=== PATIENT | female | born 2000 | race African-American/Black ===

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

== ENCOUNTER 2022-02-25 09:11 | Emergency (ER) | payer SELFPAY ==
[~2022-02-25] VITALS: Ht 157 cm; Wt 127.0 kg
[~2022-02-25 09:11] MED LIST changes: +ALBU8.5H6 INH; +AZIT250T12 PO; +BENZ200C51 PO
--- NOTE | 2022-02-25 10:22 | ED GI ---
General Chief Complaint: Abdominal/GI Problems Stated Complaint: ABD PAIN | HEADACHES | NAUSEA Nursing Triage Note: PT PRESENTS TO ED VIA POV FROM HOME WITH INTERMITTENT UPPER ABDOMINAL PAIN X 2DAYS. PT REPORTS LIGHTHEADEDNESS, NAUSEA, VOMITING STARTING THIS AM. PT STATES ITS WORSE WITH EATING. PT DENIES URINARY S/S. Source of Information: Patient Exam Limitations: No Limitations History of Present Illness Date Seen by Provider: Feb 25, 2022 Time Seen by Provider: 09:45 Initial Comments 21-year-old female presents reporting some bilateral lower abdominal cramping. Symptoms have been constant since that time. No aggravating or alleviating factors no radiation. She did have nausea and a single episode of vomiting this morning. No urinary symptoms. No vaginal discharge odor or bleeding. Last menstrual cycle was at the end of January and normal for her. She denies any new sexual partners or concerns for STDs, but states her mom is concerned about these things Allergies and Home Medications Allergies Coded Allergies: No Known Drug Allergies (Unverified , 02/13/20) Patient Home Medication List Home Medication List Reviewed: Yes Albuterol Sulfate (Ventolin Hfa) 90 Mcg Hfa.aer.ad, 2 PUFF INH QID PRN for COUGH Prescribed by: Susan Kulkarni on 12/17/21 1136 Alprazolam (Xanax) 0.25 Mg Tablet, 0.25 MG PO Q8H PRN for ANXIETY Prescribed by: BLAIR STEPHENSON on 12/29/20 0610 Amoxicillin (Amoxicillin) 500 Mg Capsule, 500 MG PO TID Prescribed by: MARGARETTE KELLER on 07/05/202040 Azithromycin (Azithromycin) 250 Mg Tablet, 250 MG PO UD Prescribed by: Susan Kulkarni on 12/17/21 1136 Benzonatate (Benzonatate) 200 Mg Capsule, 200 MG PO TID PRN for COUGH Prescribed by: Susan Kulkarni on 12/17/21 1136 Hydroxyzine HCl (Hydroxyzine HCl) 50 Mg Tablet, 50 MG PO Q6H PRN for ANXIETY Prescribed by: TAYA BURRELL on 02/13/20 1449 Hydroxyzine HCl (Hydroxyzine HCl) 25 Mg Tablet, 25 MG PO Q6H PRN for ANXIETY Prescribed by: BLAIR STEPHENSON on 10/29/20 1545 Lorazepam (Ativan) 0.5 Mg Tablet, 0.5 MG PO TID PRN for ANXIETY Prescribed by: ALLYSON ALCALA on 05/08/20 0132 Naproxen (Naprosyn) 500 Mg Tablet, 500 MG PO BID PRN for PAIN-MODERATE (5-7) Prescribed by: MARGARETTE KELLER on 07/05/202040 Prednisone (Prednisone) 20 Mg Tab, 40 MG PO DAILY Prescribed by: MARIAM TREVINO on 10/07/212024 Prednisone (Prednisone) 20 Mg Tab, 60 MG PO DAILY Prescribed by: Susan Kulkarni on 12/17/21 113 Trazodone HCl (Trazodone HCl) 50 Mg Tablet, 100 MG PO HS Prescribed by: BLAIR STEPHENSON on 10/29/20 1545 Review of Systems Review of Systems Constitutional: no symptoms reported EENTM: No Symptoms Reported Respiratory: No Symptoms Reported Cardiovascular: No Symptoms Reported Gastrointestinal: Abdominal Pain, Nausea, Vomiting Genitourinary: No Symptoms Reported Musculoskeletal: no symptoms reported Skin: no symptoms reported Psychiatric/Neurological: No Symptoms Reported Endocrine: No Symptoms Reported Hematologic/Lymphatic: No Symptoms Reported Past Xbwwgld-Dtiayw-Gturfx Hx Patient Social History Tobacco Use?: No Substance use?: No Alcohol Use?: Yes Alcohol Frequency: Once in a while Pt feels they are or have been: No Immunizations Up To Date Tetanus Booster (TDap): Less than 5yrs PED Vaccines UTD: Yes First/Initial COVID19 Vaccinat: N/A Second COVID19 Vaccination Jimy: N/A Third COVID19 Vaccination Date: N/A Past Medical History Surgery/Hospitalization HX: TONSILS Surgeries: Yes Tonsillectomy Respiratory: No Cardiac: No Neurological: No Reproductive Disorders: Yes (IRREGULAR PERIODS) Female Reproductive Disorders: Menstrual Problems Genitourinary: No Gastrointestinal: No Musculoskeletal: No Endocrine: Yes (OBESITY) HEENT: No Cancer: No Psychosocial: Yes Sleep Difficulties, Anxiety Integumentary: No Blood Disorders: No Family Medical History Reviewed Nursing Family Hx No Pertinent Family Hx Physical Exam Vital Signs Vital Signs - First Documented 02/25/22 09:35 Temp 36.5 Pulse 84 Resp 16 B/P (MAP) 143/91 (108) Pulse Ox 100 Capillary Refill : Less Than 3 Seconds Height/Weight/BMI Height: '" Weight: lbs. oz. kg; 51.00 BMI Method: General Appearance: WD/WN, no apparent distress HEENT: normal ENT inspection, pharynx normal Neck: non-tender, supple Respiratory: chest non-tender, lungs clear, normal breath sounds, no respiratory distress, no accessory muscle use Cardiovascular: regular rate, rhythm, no murmur Gastrointestinal: normal bowel sounds, soft, no organomegaly, other (Mild tenderness palpation bilateral lower abdomen without rebound or guarding. No mass organomegaly. No skin changes) Extremities: normal range of motion, normal inspection, no calf tenderness, normal capillary refill Back: normal inspection, no CVA tenderness, no vertebral tenderness Neurologic/Psychiatric: alert, normal mood/affect, oriented x 3 Skin: normal color, warm/dry Progress/Results/Core Measures Results/Orders Lab Results Laboratory Tests Test 02/25/22 10:20 02/25/22 11:04 Range/Units Urine Color YELLOW Urine Clarity CLEAR Urine pH 7.0 5-9 Urine Specific [place] 1.020 1.016-1.022 Urine Protein NEGATIVE NEGATIVE Urine Glucose (UA) NEGATIVE NEGATIVE Urine Ketones NEGATIVE NEGATIVE Urine Nitrite NEGATIVE NEGATIVE Urine Bilirubin NEGATIVE NEGATIVE Urine Urobilinogen 0.2 < = 1.0 MG/DL Urine Leukocyte Esterase NEGATIVE NEGATIVE Urine RBC (Auto) NEGATIVE NEGATIVE Urine RBC NONE /HPF Urine WBC RARE /HPF Urine Squamous Epithelial Cells 0-2 /HPF Urine Crystals NONE /LPF Urine Bacteria NEGATIVE /HPF Urine Casts NONE /LPF Urine Mucus NEGATIVE /LPF Urine Culture Indicated NO Urine Test NEGATIVE NEGATIVE White Blood Count 12.8 H 4.3-11.0 10^3/uL Red Blood Count 4.67 3.80-5.11 10^6/uL Hemoglobin 11.7 11.5-16.0 g/dL Hematocrit 37 35-52 % Mean Corpuscular Volume 80 80-99 fL Mean Corpuscular Hemoglobin 25 25-34 pg Mean Corpuscular Hemoglobin Concent 31 L 32-36 g/dL Red Cell Distribution Width 15.4 H 10.0-14.5 % Platelet Count 308 130-400 10^3/uL Mean Platelet Volume 10.5 9.0-12.2 fL Immature Granulocyte % (Auto) 0 % Neutrophils (%) (Auto) 69 42-75 % Lymphocytes (%) (Auto) 26 12-44 % Monocytes (%) (Auto) 4 0-12 % Eosinophils (%) (Auto) 1 0-10 % Basophils (%) (Auto) 0 0-10 % Neutrophils # (Auto) 8.8 H 1.8-7.8 10^3/uL Lymphocytes # (Auto) 3.4 1.0-4.0 10^3/uL Monocytes # (Auto) 0.5 0.0-1.0 10^3/uL Eosinophils # (Auto) 0.1 0.0-0.3 10^3/uL Basophils # (Auto) 0.0 0.0-0.1 10^3/uL Immature Granulocyte # (Auto) 0.0 0.0-0.1 10^3/uL Sodium Level 136 135-145 MMOL/L Potassium Level 3.6 3.6-5.0 MMOL/L Chloride Level 108 H 98-107 MMOL/L Carbon Dioxide Level 20 L 21-32 MMOL/L Anion Gap 8 5-14 MMOL/L Blood Urea Nitrogen 13 7-18 MG/DL Creatinine 0.73 0.60-1.30 MG/DL Estimat Glomerular Filtration Rate 121 BUN/Creatinine Ratio 18 Glucose Level 90 70-105 MG/DL Calcium Level 8.9 8.5-10.1 MG/DL Corrected Calcium 9.1 8.5-10.1 MG/DL Total Bilirubin 0.2 0.1-1.0 MG/DL Aspartate Amino Transf (AST/SGOT) 16 5-34 U/L Alanine Aminotransferase (ALT/SGPT) 17 0-55 U/L Alkaline Phosphatase 99 40-136 U/L Total Protein 7.3 6.4-8.2 GM/DL Albumin 3.8 3.2-4.5 GM/DL Lipase 13 8-78 U/L My Orders Orders - NNEKAGREGORY DO Lipase (02/25/22 10:05) Ua Culture If Indicated (02/25/22 10:05) Hcg,Qualitative Urine (02/25/22 10:05) Cbc With Automated Diff (02/25/22 10:05) Comprehensive Metabolic Panel (02/25/22 10:05) Vital Signs/I&O 02/25/22 09:35 Temp 36.5 Pulse 84 Resp 16 B/P (MAP) 143/91 (108) Pulse Ox 100 Blood Pressure Mean: 108 Departure Communication (Admissions) The patient is hemodynamically stable. She has a benign abdominal exam. CBC reveals a low hemoglobin. This may be due to blood loss, malnutrition, hemolysis, renal failure, malignancy or inherited disorder., CMP obtained to screen for any intra-abdominal pathology, renal function as well as electrolyte abnormalities. She is not anemic. Negative test. Urine shows no evidence for any infection. She has no symptoms of STI. She was discharged in stable condition with supportive care. Impression Primary Impression: Lower abdominal pain Disposition: HOME, SELF-CARE Condition: Stable Departure-Patient Inst. Referrals: [facility] [place] (PCP/Family) Primary Care Physician Patient Instructions: Abdominal Pain, Adult ED Add. Discharge Instructions: There is no evidence for any emergent medical condition at this time. Your labs and exam are reassuring. Your vital signs are normal. Your urine shows no evidence for any infection. Use ibuprofen and Tylenol as needed for pain. Return to the emergency department for any severe concerns. Follow-up with your primary doctor for any nonemergent needs All discharge instructions reviewed with patient and/or family. Voiced understanding. Scripts Dicyclomine HCl (Dicyclomine HCl) 10 Mg Capsule 10 MG PO TID for Abdominal Pain for 3 Days, #9 CAP Prov: GREGORY EARLY DO 02/25/22 GREGORY EARLY DO Feb 25, 2022 10:22
[2022-02-25 10:32] LABS: BILIRUBIN,URINE NEGATIVE (NEGATIVE); CLARITY,URINE CLEAR; COLOR,URINE YELLOW; GLUCOSE, URINE (UA) NEGATIVE (NEGATIVE); KETONES,URINE NEGATIVE (NEGATIVE); LEUKOCYTE ESTERASE ,URINE NEGATIVE (NEGATIVE); NITRITE,URINE NEGATIVE (NEGATIVE); PROTEIN,URINE NEGATIVE (NEGATIVE)
[2022-02-25 10:54] LABS: BACTERIA,URINE NEGATIVE /HPF; SQUAMOUS EPITHELIAL CELL,UR 0-2 /HPF; WBC,URINE RARE /HPF
[2022-02-25 11:09] LABS: BASOPHILS % (AUTO) 0 % (0-10); EOSINOPHILS # (AUTO) 0.1 10^3/uL (0.0-0.3); EOSINOPHILS % (AUTO) 1 % (0-10); HEMATOCRIT 37 % (35-52); HEMOGLOBIN 11.7 g/dL (11.5-16.0); LYMPHOCYTES # (AUTO) 3.4 10^3/uL (1.0-4.0); LYMPHOCYTES % (AUTO) 26 % (12-44); MEAN CORPUSCULAR HEMOGLOBIN 25 pg (25-34); MEAN CORPUSCULAR HGB CONC 31 g/dL (32-36); MEAN CORPUSCULAR VOLUME 80 fL (80-99); MEAN PLATELET VOLUME 10.5 fL (9.0-12.2); MONOCYTES # (AUTO) 0.5 10^3/uL (0.0-1.0); MONOCYTES % (AUTO) 4 % (0-12); NEUTROPHILS # (AUTO) 8.8 10^3/uL (1.8-7.8); NEUTROPHILS % (AUTO) 69 % (42-75); PLATELET COUNT 308 10^3/uL (130-400); WHITE BLOOD COUNT 12.8 10^3/uL (4.3-11.0)
[2022-02-25 11:34] LABS: ALBUMIN 3.8 GM/DL (3.2-4.5); POTASSIUM 3.6 MMOL/L (3.6-5.0)
[2022-02-25 11:35] LABS: CALCIUM 8.9 MG/DL (8.5-10.1)
[2022-02-25 11:36] LABS: TOTAL PROTEIN 7.3 GM/DL (6.4-8.2)
[2022-02-25 11:38] LABS: BILIRUBIN,TOTAL 0.2 MG/DL (0.1-1.0)
[2022-02-25 11:40] LABS: CREATININE SERUM 0.73 MG/DL (0.60-1.30)
[2022-02-25] MEDS ORDERED: DICY10CA12 PO (11:51)
[2022-02-25 12:16] VITALS: BP 116/77
== END 2022-02-25 12:16 | disposition home or self-care (01) ==
LOC: EDUNIT# 09:11 → ER 09:15
DX: R10.31 Right lower quadrant pain (principal); R10.32 Left lower quadrant pain; E66.9 Obesity, unspecified; Z32.02 Encounter for pregnancy test, result negative
CPT/HCPCS: 36415; 80053; 81000; 83690; 84703; 85025; 99283

== ENCOUNTER 2022-05-18 13:46 | Emergency (ER) | payer SELFPAY ==
[~2022-05-18] VITALS: Ht 157.5 cm; Wt 120.2 kg
[~2022-05-18 13:46] MED LIST changes: +DICY10CA12 PO
[2022-05-18] MEDS ORDERED: LORazepam 0.5 MG (ATIVAN) TABLET PO STA (14:05)
--- NOTE | 2022-05-18 14:09 | ED General ---
General Chief Complaint: Psych/Social Disorder Stated Complaint: PANIC ATTACKS Source of Information: Patient Exam Limitations: No Limitations History of Present Illness Date Seen by Provider: May 18, 2022 Time Seen by Provider: 14:06 Initial Comments Patient is a 21-year-old female who presents to the ED with for panic attack. She states she has felt anxious over the past 3 days. Patient states she has felt jittery, fast heart rate, shakiness, sweaty. No cause of her symptoms. She states she has a history of anxiety and depression. She was on BuSpar and Prozac about a year and a half ago but she stopped because she did not like the medication and how it made her feel. She does not currently see a therapist. She states she has been seen prior and was given dose of Xanax without much improvement. She denies of any history of thyroid disease, drug use, alcohol use, concern for , abdominal pain, vaginal bleeding, fever, visual changes. Patient is very soft-spoken and reserved. No suicidal homicidal thoughts Allergies and Home Medications Allergies Coded Allergies: No Known Drug Allergies (Unverified , 02/13/20) Patient Home Medication List Home Medication List Reviewed: Yes Albuterol Sulfate (Ventolin Hfa) 90 Mcg Hfa.aer.ad, 2 PUFF INH QID PRN for COUGH Prescribed by: Susan Kulkarni on 12/17/21 1136 Alprazolam (Xanax) 0.25 Mg Tablet, 0.25 MG PO Q8H PRN for ANXIETY Prescribed by: BLAIR STEPHENSON on 12/29/20 0610 Amoxicillin (Amoxicillin) 500 Mg Capsule, 500 MG PO TID Prescribed by: MARGARETTE KELLER on 07/05/20 204 Azithromycin (Azithromycin) 250 Mg Tablet, 250 MG PO UD Prescribed by: Susan Kulkarni on 12/17/21 1136 Benzonatate (Benzonatate) 200 Mg Capsule, 200 MG PO TID PRN for COUGH Prescribed by: Susan Kulkarni on 12/17/21 1136 Dicyclomine HCl (Dicyclomine HCl) 10 Mg Capsule, 10 MG PO TID Prescribed by: GREGORY EARLY MD on 02/25/22 1151 Hydroxyzine HCl (Hydroxyzine HCl) 50 Mg Tablet, 50 MG PO Q6H PRN for ANXIETY Prescribed by: TAYA BURRELL on 02/13/20 1449 Hydroxyzine HCl (Hydroxyzine HCl) 25 Mg Tablet, 25 MG PO Q6H PRN for ANXIETY Prescribed by: BLAIR STEPHENSON on 10/29/20 1545 Lorazepam (Ativan) 0.5 Mg Tablet, 0.5 MG PO TID PRN for ANXIETY Prescribed by: ALLYSON ALCALA on 05/08/20 0132 Lorazepam (Ativan) 0.5 Mg Tablet, 0.5 MG PO TID PRN for ANXIETY Prescribed by: LASHAE HIRSCH on 05/18/22 1454 Naproxen (Naprosyn) 500 Mg Tablet, 500 MG PO BID PRN for PAIN-MODERATE (5-7) Prescribed by: MARGARETTE KELLER on 07/05/202040 Prednisone (Prednisone) 20 Mg Tab, 40 MG PO DAILY Prescribed by: MARIAM TREVINO on 10/07/212024 Prednisone (Prednisone) 20 Mg Tab, 60 MG PO DAILY Prescribed by: Susan Kulkarni on 12/17/21 1136 Trazodone HCl (Trazodone HCl) 50 Mg Tablet, 100 MG PO HS Prescribed by: BLAIR STEPHENSON on 10/29/20 1545 Review of Systems Review of Systems Constitutional: No chills, No diaphoresis, No malaise EENTM: No hearing loss, No blurred vision, No double vision Respiratory: No cough, No dyspnea on exertion Cardiovascular: No chest pain Gastrointestinal: No abdominal pain, No diarrhea, No nausea, No vomiting Genitourinary: No decreased output, No discharge Musculoskeletal: No back pain, No joint pain Psychiatric/Neurological: Anxiety; Denies Depressed All Other Systems Reviewed Negative Unless Noted: Yes Past Afaldsd-Ghahum-Mddtap Hx Patient Social History Tobacco Use?: No Use of E-Cig and/or Vaping dev: Yes E-Cig or Vaping type used: Nicotine Use of E-Cig and/or Vaping [place]: Current Everyday User Substance use?: No Alcohol Use?: Yes Alcohol Frequency: Once in a while Pt feels they are or have been: No Immunizations Up To Date Tetanus Booster (TDap): Less than 5yrs PED Vaccines UTD: Yes Influenza Vaccine Up-to-Date: No; Not Current First/Initial COVID19 Vaccinat: N/A Second COVID19 Vaccination Jimy: N/A Third COVID19 Vaccination Date: N/A Past Medical History Surgery/Hospitalization HX: TONSILS Surgeries: Yes Tonsillectomy Respiratory: No Cardiac: No Neurological: No Reproductive Disorders: Yes (IRREGULAR PERIODS) Female Reproductive Disorders: Menstrual Problems Genitourinary: No Gastrointestinal: No Musculoskeletal: No Endocrine: Yes (OBESITY) HEENT: No Cancer: No Psychosocial: Yes Sleep Difficulties, Anxiety Integumentary: No Blood Disorders: No Family Medical History No Pertinent Family Hx Physical Exam Vital Signs Vital Signs - First Documented 05/18/22 13:54 Temp 36.2 Pulse 75 Resp 18 B/P (MAP) 105/63 (77) Pulse Ox 98 O2 Delivery Room Air Capillary Refill : Height, Weight, BMI Height: '" Weight: lbs. oz. kg; 51.00 BMI Method: General Appearance: No Apparent Distress, WD/WN Eyes: Bilateral Eye Normal Inspection, Bilateral Eye PERRL, Bilateral Eye EOMI HEENT: PERRL/EOMI, TMs Normal, Normal ENT Inspection, Pharynx Normal Neck: Full Range of Motion, Normal Inspection, Non Tender, Supple Respiratory: Chest Non Tender, Lungs Clear, Normal Breath Sounds, No Accessory Muscle Use, No Respiratory Distress Cardiovascular: Regular Rate, Rhythm, No Edema, No Gallop, No JVD, No Murmur Gastrointestinal: Normal Bowel Sounds, No Organomegaly, No Pulsatile Mass, Non Tender Back: Normal Inspection, No CVA Tenderness, No Vertebral Tenderness Extremity: Normal Capillary Refill, Normal Inspection, Normal Range of Motion, Non Tender Neurologic/Psychiatric: Alert, Oriented x3, No Motor/Sensory Deficits, Normal Mood/Affect, histology technologist II-XII Norm as Tested Skin: Normal Color, Warm/Dry Progress/Results/Core Measures Suspected Sepsis SIRS Temperature: Pulse: Respiratory Rate: Blood Pressure / Mean: Results/Orders My Orders Orders - ISABELLA FAULKNER Lorazepam Tablet (Ativan Tablet) (05/18/22 14:05) Vital Signs/I&O 05/18/22 05/18/22 13:54 15:05 Temp 36.2 Pulse 75 72 Resp 18 18 B/P (MAP) 105/63 (77) 110/72 Pulse Ox 98 98 O2 Delivery Room Air Room Air Capillary Refill : Departure Communication (PCP) History of anxiety. Patient presents to ED with panic attack. She states she feels jittery, shaky, sweaty. No chest pain, shortness of breath, visual changes, headache. She states this feels very similar to her previous panic attacks. Reviewed previous ER visits, H&P's which she has been seen here prior with similar type panic attacks. Not currently on her Prozac or BuSpar. She states the medication made her feel off. Discussed with patient other ways to help control her anxiety such as increased exercise, relaxation techniques, regular sleep, breathing techniques. She states she has been meditating. Did provide a dose of Ativan 1 mg here which did help her symptoms. She is requesting some outpatient resources. She states she does not currently have a therapist. Discussed attempting to follow-up with behavioral health outpatient. She has no suicidal or homicidal thoughts. No drug use or alcohol use. Discussed multimodality approach to manage her panic disorder. She agrees. Impression Primary Impression: Panic attack Disposition: HOME, SELF-CARE Condition: Stable Departure-Patient Inst. Decision time for Depature: 14:53 [address]: [facility] [place] Primary Care Physician Patient Instructions: [facility], Panic Attack ED Add. Discharge Instructions: Recommend returning back to ED if further symptoms worsen. Recommend continue monitoring symptoms at home. Provide a few days worth of medication as needed All discharge instructions reviewed with patient and/or family. Voiced understanding. Scripts Lorazepam (Ativan) 0.5 Mg Tablet 0.5 MG PO TID PRN for ANXIETY, #5 TAB Prov: ISABELLA FAULKNER 05/18/22 ISABELLA FAULKNER May 18, 2022 14:09
[2022-05-18] MEDS ORDERED: LORA-404 PO (14:54)
[2022-05-18 15:05] VITALS: BP 110/72
== END 2022-05-18 15:05 | disposition home or self-care (01) ==
LOC: EDUNIT# 13:46 → ER 13:49
DX: F41.0 Panic disorder [episodic paroxysmal anxiety] (principal); F17.290 Nicotine dependence, other tobacco product, uncomplicated; E66.9 Obesity, unspecified; Z28.310 Unvaccinated for COVID-19
CPT/HCPCS: 99283

== ENCOUNTER 2022-05-23 15:50 | Emergency (ER) | payer SELFPAY ==
[~2022-05-23] VITALS: Ht 157 cm; Wt 127.0 kg
[2022-05-23 16:38] LABS: BASOPHILS % (AUTO) 0 % (0-10); EOSINOPHILS # (AUTO) 0.1 10^3/uL (0.0-0.3); EOSINOPHILS % (AUTO) 1 % (0-10); HEMATOCRIT 36 % (35-52); HEMOGLOBIN 11.4 g/dL (11.5-16.0); LYMPHOCYTES # (AUTO) 2.4 X 10^3 (1.0-4.0); LYMPHOCYTES % (AUTO) 26 % (12-44); MEAN CORPUSCULAR HEMOGLOBIN 25 pg (25-34); MEAN CORPUSCULAR HGB CONC 31 g/dL (32-36); MEAN CORPUSCULAR VOLUME 80 fL (80-99); MEAN PLATELET VOLUME 9.7 fL (9.0-12.2); MONOCYTES # (AUTO) 0.4 X 10^3 (0.0-1.0); MONOCYTES % (AUTO) 4 % (0-12); NEUTROPHILS # (AUTO) 6.3 X 10^3 (1.8-7.8); NEUTROPHILS % (AUTO) 69 % (42-75); PLATELET COUNT 340 10^3/uL (130-400); WHITE BLOOD COUNT 9.1 10^3/uL (4.3-11.0)
[2022-05-23 16:40] LABS: ALBUMIN 3.9 GM/DL (3.2-4.5); CHLORIDE 107 MMOL/L (98-107); POTASSIUM 3.9 MMOL/L (3.6-5.0); SODIUM 139 MMOL/L (135-145)
[2022-05-23 16:41] LABS: CALCIUM 8.7 MG/DL (8.5-10.1)
[2022-05-23 16:42] LABS: GLUCOSE 86 MG/DL (70-105); TOTAL PROTEIN 7.2 GM/DL (6.4-8.2)
[2022-05-23 16:43] LABS: CARBON DIOXIDE 23 MMOL/L (21-32)
[2022-05-23 16:43] LABS: BILIRUBIN,URINE NEGATIVE (NEGATIVE); CLARITY,URINE CLOUDY; COLOR,URINE YELLOW; GLUCOSE, URINE (UA) NEGATIVE (NEGATIVE); KETONES,URINE NEGATIVE (NEGATIVE); LEUKOCYTE ESTERASE ,URINE 1+ (NEGATIVE); NITRITE,URINE NEGATIVE (NEGATIVE); PROTEIN,URINE NEGATIVE (NEGATIVE)
[2022-05-23 16:44] LABS: BILIRUBIN,TOTAL 0.4 MG/DL (0.1-1.0)
[2022-05-23 16:46] LABS: ALKALINE PHOSPHATASE 80 U/L (40-136); CREATININE SERUM 0.72 MG/DL (0.60-1.30); GFR ESTIMATED 123
[2022-05-23 16:47] LABS: BUN/CREATININE RATIO 13
[2022-05-23 16:48] LABS: AMPHETAMINE SCREEN, URINE NEGATIVE (NEGATIVE); BARBITURATE SCREEN URINE NEGATIVE (NEGATIVE); BENZODIAZEPINES SCREEN URINE POSITIVE (NEGATIVE); CANNABINOID SCREEN, URINE NEGATIVE (NEGATIVE); COCAINE SCREEN URINE NEGATIVE (NEGATIVE); METHADONE STAT NEGATIVE (NEGATIVE); OPIATE SCREEN URINE NEGATIVE (NEGATIVE); OXYCODONE STAT NEGATIVE (NEGATIVE); PROPOXYPHENE STAT NEGATIVE (NEGATIVE); TRICYCLIC ANTIDEPRESSANTS SCRE NEGATIVE (NEGATIVE)
[2022-05-23 16:49] LABS: ALANINE AMINOTRANSFERASE 13 U/L (0-55); SALICYLATE < 5.0 MG/DL (5.0-20.0)
[2022-05-23 16:50] LABS: ACETAMINOPHEN < 10 UG/ML (10-30)
[2022-05-23 16:53] LABS: WBC,URINE 25-50 /HPF
[2022-05-23 16:54] LABS: BACTERIA,URINE MODERATE /HPF
[2022-05-23] MEDS ORDERED: NITR-65 PO (17:31)
--- NOTE | 2022-05-23 17:31 | ED General ---
General Chief Complaint: Psych/Social Disorder Stated Complaint: PANIC ATTACK Nursing Triage Note: pt c/o being woken up from sleep by a panic attack around 1530 that lasted 10min. pt denies SI/HI. denies using substances prior to panic attack. pt has been off psych meds for 1 year. Allergies and Home Medications Allergies Coded Allergies: No Known Drug Allergies (Unverified , 02/13/20) Patient Home Medication List Albuterol Sulfate (Ventolin Hfa) 90 Mcg Hfa.aer.ad, 2 PUFF INH QID PRN for COUGH Prescribed by: Susan Kulkarni on 12/17/21 1136 Alprazolam (Xanax) 0.25 Mg Tablet, 0.25 MG PO Q8H PRN for ANXIETY Prescribed by: BLAIR STEPHENSON on 12/29/20 0610 Amoxicillin (Amoxicillin) 500 Mg Capsule, 500 MG PO TID Prescribed by: MARGARETTE KELLER on 07/05/20 204 Azithromycin (Azithromycin) 250 Mg Tablet, 250 MG PO UD Prescribed by: Susan Kulkarni on 12/17/21 1136 Benzonatate (Benzonatate) 200 Mg Capsule, 200 MG PO TID PRN for COUGH Prescribed by: Susan Kulkarni on 12/17/21 1136 Dicyclomine HCl (Dicyclomine HCl) 10 Mg Capsule, 10 MG PO TID Prescribed by: GREGORY EARLY MD on 02/25/22 1151 Hydroxyzine HCl (Hydroxyzine HCl) 50 Mg Tablet, 50 MG PO Q6H PRN for ANXIETY Prescribed by: TAYA BURRELL on 02/13/20 1449 Hydroxyzine HCl (Hydroxyzine HCl) 25 Mg Tablet, 25 MG PO Q6H PRN for ANXIETY Prescribed by: BLAIR STEPHENSON on 10/29/20 1545 Lorazepam (Ativan) 0.5 Mg Tablet, 0.5 MG PO TID PRN for ANXIETY Prescribed by: ALLYSON ALCALA on 05/08/20 0132 Lorazepam (Ativan) 0.5 Mg Tablet, 0.5 MG PO TID PRN for ANXIETY Prescribed by: LASHAE HIRSCH on 05/18/22 1454 Naproxen (Naprosyn) 500 Mg Tablet, 500 MG PO BID PRN for PAIN-MODERATE (5-7) Prescribed by: MARGARETTE KELLER on 07/05/202040 Prednisone (Prednisone) 20 Mg Tab, 40 MG PO DAILY Prescribed by: MARIAM TREVINO on 10/07/212024 Prednisone (Prednisone) 20 Mg Tab, 60 MG PO DAILY Prescribed by: Susan Kulkarni on 12/17/21 1136 Trazodone HCl (Trazodone HCl) 50 Mg Tablet, 100 MG PO HS Prescribed by: BLAIR STEPHENSON on 10/29/20 1545 Past Crpnedp-Zdafbv-Mbsssj Hx Patient Social History Tobacco Use?: Yes Use of E-Cig and/or Vaping dev: Yes Substance use?: Yes Substance type: Misuse of prescript meds Additional substance use comme: adderall Alcohol Use?: No Pt feels they are or have been: No Immunizations Up To Date Tetanus Booster (TDap): Less than 5yrs PED Vaccines UTD: Yes Influenza Vaccine Up-to-Date: No; Not Current First/Initial COVID19 Vaccinat: N/A Second COVID19 Vaccination Jimy: N/A Third COVID19 Vaccination Date: N/A Past Medical History Surgery/Hospitalization HX: TONSILS Surgeries: Yes Tonsillectomy Respiratory: No Cardiac: No Neurological: No Reproductive Disorders: Yes (IRREGULAR PERIODS) Female Reproductive Disorders: Menstrual Problems Genitourinary: No Gastrointestinal: No Musculoskeletal: No Endocrine: Yes (OBESITY) HEENT: No Cancer: No Psychosocial: Yes Sleep Difficulties, Anxiety Integumentary: No Blood Disorders: No Family Medical History No Pertinent Family Hx Physical Exam Vital Signs Vital Signs - First Documented 05/23/22 15:55 Temp 36.0 Pulse 79 Resp 20 B/P (MAP) 114/75 (88) Pulse Ox 98 O2 Delivery Room Air Capillary Refill : Height, Weight, BMI Height: '" Weight: lbs. oz. kg; 51.00 BMI Method: Progress/Results/Core Measures Suspected Sepsis SIRS Temperature: Pulse: 79 Respiratory Rate: 20 Laboratory Tests 05/23/22 16:14: White Blood Count 9.1 Blood Pressure 114 /75 Mean: 88 Laboratory Tests 05/23/22 16:14: Creatinine 0.72, Platelet Count 340, Total Bilirubin 0.4 Results/Orders Lab Results Laboratory Tests Test 05/23/22 16:08 05/23/22 16:14 Range/Units Urine Color YELLOW Urine Clarity CLOUDY Urine pH 6.0 5-9 Urine Specific [place] 1.020 1.016-1.022 Urine Protein NEGATIVE NEGATIVE Urine Glucose (UA) NEGATIVE NEGATIVE Urine Ketones NEGATIVE NEGATIVE Urine Nitrite NEGATIVE NEGATIVE Urine Bilirubin NEGATIVE NEGATIVE Urine Urobilinogen 0.2 < = 1.0 MG/DL Urine Leukocyte Esterase 1+ H NEGATIVE Urine RBC (Auto) NEGATIVE NEGATIVE Urine RBC NONE /HPF Urine WBC 25-50 H /HPF Urine Squamous Epithelial Cells 10-25 H /HPF Urine Crystals NONE /LPF Urine Bacteria MODERATE H /HPF Urine Casts NONE /LPF Urine Mucus MODERATE H /LPF Urine Other /HPF Urine Culture Indicated YES Urine Opiates Screen NEGATIVE NEGATIVE Urine Oxycodone Screen NEGATIVE NEGATIVE Urine Methadone Screen NEGATIVE NEGATIVE Urine Propoxyphene Screen NEGATIVE NEGATIVE Urine Barbiturates Screen NEGATIVE NEGATIVE Ur Tricyclic Antidepressants Screen NEGATIVE NEGATIVE Urine Phencyclidine Screen NEGATIVE NEGATIVE Urine Amphetamines Screen NEGATIVE NEGATIVE Urine Methamphetamines Screen NEGATIVE NEGATIVE Urine Benzodiazepines Screen POSITIVE H NEGATIVE Urine Cocaine Screen NEGATIVE NEGATIVE Urine Cannabinoids Screen NEGATIVE NEGATIVE White Blood Count 9.1 4.3-11.0 10^3/uL Red Blood Count 4.56 3.80-5.11 10^6/uL Hemoglobin 11.4 L 11.5-16.0 g/dL Hematocrit 36 35-52 % Mean Corpuscular Volume 80 80-99 fL Mean Corpuscular Hemoglobin 25 25-34 pg Mean Corpuscular Hemoglobin Concent 31 L 32-36 g/dL Red Cell Distribution Width 15.9 H 10.0-14.5 % Platelet Count 340 130-400 10^3/uL Mean Platelet Volume 9.7 9.0-12.2 fL Immature Granulocyte % (Auto) 0 % Neutrophils (%) (Auto) 69 42-75 % Lymphocytes (%) (Auto) 26 12-44 % Monocytes (%) (Auto) 4 0-12 % Eosinophils (%) (Auto) 1 0-10 % Basophils (%) (Auto) 0 0-10 % Neutrophils # (Auto) 6.3 1.8-7.8 X 10^3 Lymphocytes # (Auto) 2.4 1.0-4.0 X 10^3 Monocytes # (Auto) 0.4 0.0-1.0 X 10^3 Eosinophils # (Auto) 0.1 0.0-0.3 10^3/uL Basophils # (Auto) 0.0 0.0-0.1 10^3/uL Immature Granulocyte # (Auto) 0.0 0.0-0.1 10^3/uL Sodium Level 139 135-145 MMOL/L Potassium Level 3.9 3.6-5.0 MMOL/L Chloride Level 107 98-107 MMOL/L Carbon Dioxide Level 23 21-32 MMOL/L Anion Gap 9 5-14 MMOL/L Blood Urea Nitrogen 9 7-18 MG/DL Creatinine 0.72 0.60-1.30 MG/DL Estimat Glomerular Filtration Rate 123 BUN/Creatinine Ratio 13 Glucose Level 86 70-105 MG/DL Calcium Level 8.7 8.5-10.1 MG/DL Corrected Calcium 8.8 8.5-10.1 MG/DL Total Bilirubin 0.4 0.1-1.0 MG/DL Aspartate Amino Transf (AST/SGOT) 12 5-34 U/L Alanine Aminotransferase (ALT/SGPT) 13 0-55 U/L Alkaline Phosphatase 80 40-136 U/L Total Protein 7.2 6.4-8.2 GM/DL Albumin 3.9 3.2-4.5 GM/DL Serum Test, Qualitative NEGATIVE NEGATIVE Salicylates Level < 5.0 L 5.0-20.0 MG/DL Acetaminophen Level < 10 L 10-30 UG/ML Serum Alcohol < 10 <10 MG/DL My Orders Orders - ALLYSON ALCALA DO Acetaminophen (05/23/22 16:04) Alcohol (05/23/22 16:04) Cbc With Automated Diff (05/23/22 16:04) Comprehensive Metabolic Panel (05/23/22 16:04) Drug Screen Stat (Urine) (05/23/22 16:04) Hcg,Qualitative Serum (05/23/22 16:04) Salicylate (05/23/22 16:04) Ua Culture If Indicated (05/23/22 16:04) Monitor-Rhythm Ecg Trace Only (05/23/22 16:04) Urine Culture (05/23/22 16:08) Vital Signs/I&O 05/23/22 15:55 Temp 36.0 Pulse 79 Resp 20 B/P (MAP) 114/75 (88) Pulse Ox 98 O2 Delivery Room Air Capillary Refill : Blood Pressure Mean: 88 Departure Impression Primary Impression: Anxiety Additional Impressions: UTI (urinary tract infection) Non-compliance Disposition: 01 HOME, SELF-CARE Condition: Stable Departure-Patient Inst. Decision time for Depature: 17:29 Referrals: [facility]AT[facility] (PCP) Primary Care Physician CEDRIC BETANCUR APRN (Family) Primary Care Physician Patient Instructions: Anxiety, Adult (DC), Urinary Tract Infection, Adult (DC) Add. Discharge Instructions: LOTS OF CLEAR LIQUIDS--NO COFFEE, POP OR TEA FOLLOW UP WITH [facility] THIS WEEK FOR FURTHER CARE--CALL TODAY TO SCHEDULE AN APPOINTMENT All discharge instructions reviewed with patient and/or family. Voiced understanding. Scripts Nitrofurantoin Monohyd/M-Cryst (Macrobid 100 mg Capsule) 100 Mg Capsule 1 TAB PO BID, #20 CAP Prov: ALLYSON ALCALA DO 05/23/22 ALLYSON ALCALA DO May 23, 2022 17:31
[2022-05-23 17:40] VITALS: BP 3/63
== END 2022-05-23 17:40 | disposition home or self-care (01) ==
LOC: EDUNIT# 15:50 → ER 15:52
DX: F41.9 Anxiety disorder, unspecified (principal); N39.0 Urinary tract infection, site not specified; E66.9 Obesity, unspecified; F17.290 Nicotine dependence, other tobacco product, uncomplicated; Z91.199 Patient's noncompliance with other medical treatment and regimen due to unspecified reason; Z28.310 Unvaccinated for COVID-19
CPT/HCPCS: 80053; 80306; 81000; 84703; 85025; 87077; 87088; 87186; 93041; 99283; G0480 ×3; 36415; 80320; 80329

== ENCOUNTER 2022-12-09 11:10 | Emergency (ER) | payer SELFPAY ==
[~2022-12-09] VITALS: Ht 162.5 cm; Wt 127.0 kg
[~2022-12-09 11:10] MED LIST changes: +DICY-11 PO; -DICY10CA12 PO; +NITR-65 PO
[2022-12-09 11:52] VITALS: BP 142/82
== END 2022-12-09 14:23 | disposition left against medical advice (07) ==
LOC: EDUNIT# 11:10 → ER 11:12
DX: S00.30XA Unspecified superficial injury of nose, initial encounter (principal); X58.XXXA Exposure to other specified factors, initial encounter